=== PATIENT | female | born 1975 | race Caucasian/White ===

== ENCOUNTER 2016-07-11 05:10 | Day surgery (SDC) | payer MEDICARE ==
[2016-07-10 14:23] LABS: HEMATOCRIT 40.6 % (36.0-48.0); HEMOGLOBIN 13.1 g/dL (12-16); MCH 28.9 pg (26.0-34.0); MCHC 32.3 g/dL (31.0-37.0); MCV 89.6 fL (80.0-100.0); MEAN PLATELET VOLUME 11.8 fL (7.4-10.4); RBC 4.53 10x6/uL (4.00-5.40); RDW 14.2 % (11.5-14.5); WBC 9.6 10x3/uL (4.8-10.8)
[~2016-07-11] VITALS: Ht 175.3 cm; Wt 79.4 kg
[~2016-07-11 05:10] MED LIST: ADVIL200 MG PO
[2016-07-11 05:53] VITALS: BP 105/77; Ht 175.3 cm; Wt 79.4 kg
[2016-07-11 06:03] LABS: HCG URINE NEGATIVE (NEGATIVE)
[2016-07-11] MEDS ORDERED: HYDROCODONE-APA1 TAB PO (07:56)
--- NOTE | 2016-07-11 09:18 | NUR ---
IV DC WITH CATHER TIP INTACT
--- NOTE | 2016-07-15 12:58 | OP ---
PATIENT NAME: RACQUEL CHAU MEDICAL RECORD: [id number] :79 LOCATION:[facility] ADMISSION DATE: SURGEON: OTONIEL CASTRO MD DATE OF OPERATION: 07/11/2016 PREOPERATIVE DIAGNOSES: Right knee pain, right knee chondromalacia, right knee subchondral tibial lesion. SURGEON: Kavon Castro MD. ANESTHESIA: General. The patient had a block for postop pain. CONDITION: She tolerated the procedure well, was transferred to the recovery room in stable condition at termination of procedure. INDICATIONS: This is a pleasant 41-year-old female, has been seen in the office now for a couple of years, has been having a continued pain in her knee, a lot of her pain ____ kneecaps. She also had some plateau type pain. Her MRI shows a subchondral lesion chondromalacia. We discussed options and decided to go ahead and proceed with a subchondroplasty and chondroplasty type procedure. We discussed risks, benefits, and alternatives. She understood and wished to proceed. OPERATIVE REPORT: The patient was taken to the operating room and placed in supine position. General anesthesia was obtained. She did get a block in the preop holding area. In the operating room, her right knee was confirmed to be the correct knee. It was prepped and draped in normal fashion. She then had her portal sites marked and injected with 0.25% Marcaine with epinephrine. I established an anterolateral portal for the scope and inflow, superior medial portal for the outflow. The patellofemoral joint was inspected. She did have some grade I-II chondromalacia. She had some synovitis up around the quad tendon insertion, this was noted. We came down the medial gutter in the medial joint line. The medial joint overall looked very good. She had some mild grade I-II chondromalacia in the medial joint. At this juncture, made anterior medial portal. I did debride some of the synovitis as well as the small amount of chondromalacia. ACL and PCL were notably intact. Placing in a [id number] position and checking laterally, again, she had some small chondromalacia like changes on the lateral femoral condyle, grade I and II. This was debrided. I did debride the area around the quad tendon. Then went back, placed the trocar into the subchondral defect on the tibia using C-arm. This was filled with AccuFill 5 cc of the calcium phosphate AccuFill. The trocar was left in place for about 10 minutes till it dried. The blanching ____ the bone was noted in the area of the subchondral lesion. Once this was accomplished, I then put the scope back in the knee noted that there was no movement of the AccuFill into the knee itself. I then proceeded to bring the case to a close. She was closed with 3-0 Prolene, placed in soft dressing, awakened and transferred to the recovery room in stable condition, having tolerated the procedure well. 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
== END 2016-07-11 09:30 | disposition home or self-care (01) ==
LOC: D.OPS 05:10 → D.PAN 07:00 → D.OPS 07:00
PROVIDERS: Anesthesiology; Orthopaedic Surgery Sports Medicine
DX: M94.261 Chondromalacia, right knee (principal); M93.861 Other specified osteochondropathies, right lower leg; M65.861 Other synovitis and tenosynovitis, right lower leg

== ENCOUNTER → 2019-05-26 07:35 | Outpatient (CLI) | payer MEDICARE ==
[2016-07-11 05:53] VITALS: BMI 25.9
[~2019-05-26 07:35] MED LIST changes: +HYDROCODONE-APA1 TAB PO
== END | disposition home or self-care (01) ==
LOC: D.MRI 07:35
PROVIDERS: ATTEND Family Medicine
DX: R20.1 Hypoesthesia of skin (principal); G04.91 Myelitis, unspecified